=== PATIENT | female | born 1970 | race Caucasian/White ===

== ENCOUNTER 2016-04-18 06:46 | Day surgery (SDC) | payer BC, OTHER ==
[2016-04-18 07:30] LABS: PROTHROMBIN TIME 12.1 SEC (11.4-15.4)
[2016-04-18 11:39] LABS: GLUCOSE,CSF 55 mg/dL (40-70)
[2016-04-18 11:55] LABS: APPEARANCE TUBE 1 HAZY; APPEARANCE TUBE 2 CLEAR; APPEARANCE TUBE 3 CLEAR; RBC AVERAGE 115.5; RBC DILUENT USED NONE USED; RBC DILUTION FACTOR 1; RBC SIDE 1 115; RBC SIDE 2 116; TOTAL RBC SQUARES COUNTED 50
[2016-04-18 11:56] LABS: WHITE BLOOD CELL,CSF 5 /uL (0-5)
[2016-04-18 15:27] VITALS: BP 110/70
[2016-04-19 16:39] LABS: ALBUMIN CSF 22 mg/dL (11-48); ALBUMIN SERUM 4.3 g/dL (3.5-5.5); CSF IGG INDEX 0.5 (0.0-0.7); IGG SYNTHESIS RATE CSF -1.8 mg/day (-9.9 TO +3.3); IMMUNOGLOBULIN G CSF 2.3 mg/dL (0.0-8.6); IMMUNOGLOBULIN G SERUM 875 mg/dL (700-1600)
[2016-04-19 17:51] LABS: CSF/SERUM ALBUMIN INDEX 5 (0-8)
== END 2016-04-18 12:45 | disposition home or self-care (01) ==
LOC: RAD 06:46
PROVIDERS: ATTEND Specialist
PROC: 009U3ZX Drainage of Spinal Canal, Percutaneous Approach, Diagnostic (ICD-10-PCS; principal; 2016-04-18)
DX: G35 Multiple sclerosis (principal); Z88.8 Allergy status to other drugs, medicaments and biological substances
CPT/HCPCS: 36415; 62270; 77003; 82784; 82945; 83916; 84157; 85610; 85730; 87070; 87205; 89050